=== PATIENT | male | born 1990 | race African-American/Black ===

== ENCOUNTER 2016-10-29 20:54 | Emergency (ER) | payer SELFPAY ==
[~2016-10-29] VITALS: Ht 190.5 cm; Wt 136.4 kg
[2016-10-29 21:56] VITALS: BP 162/99
[2016-10-29] MEDS ORDERED: IBUPROFEN 800 MG TABLET PO ONE (22:00)
== END 2016-10-29 22:07 | disposition home or self-care (01) ==
LOC: EMS 21:00
DX: M25.562 Pain in left knee (principal); M25.561 Pain in right knee; M76.52 Patellar tendinitis, left knee; M76.51 Patellar tendinitis, right knee; E66.9 Obesity, unspecified
CPT/HCPCS: 99282